=== PATIENT | male | born 1970 ===

== ENCOUNTER 2022-12-16 17:23 | Emergency (ER) | payer OTHER ==
[~2022-12-16] VITALS: Ht 172.7 cm; Wt 68.2 kg
[2022-12-16 17:25] VITALS: TEMP 98.4
[2022-12-16 17:33] VITALS: BP 96/56
[2022-12-16 17:42] VITALS: PULSE 72; RESP 16; O2SAT 97
[2022-12-16] MEDS ORDERED: GENTAMICIN OPTH sol 0.3% 5ml RIGHTEYE ONE (17:45)
[2022-12-16] MEDS ORDERED: NEOMYCIN-POLYM-GRAM OPTH(EYE) SOL 10ML OP SCH (18:00)
== END 2022-12-16 18:06 | disposition home or self-care (01) ==
LOC: ER 17:23 → EEVIPCON 17:23 → ER 18:03
DX: S05.01XA Injury of conjunctiva and corneal abrasion without foreign body, right eye, initial encounter (principal); W22.8XXA Striking against or struck by other objects, initial encounter; Y93.67 Activity, basketball; Y92.89 Other specified places as the place of occurrence of the external cause; Y99.8 Other external cause status